=== PATIENT | male | born 1975 | race Caucasian/White ===

== ENCOUNTER 2024-07-22 16:44 | Emergency (ER) | payer BC ==
[2024-07-22] MEDS ORDERED: Sodium Chloride 0.9% 10 ML Syringe FLUSH PRN (16:55)
[2024-07-22 17:00] LABS: BASOPHILS ABSOLUTE AUTO 0.02 K/uL (0.00-0.20); BASOPHILS PERCENT AUTO 0.2 % (0.0-2.0); EOSINOPHILS ABSOLUTE AUTO 0.07 K/uL (0.00-0.50); EOSINOPHILS PERCENT AUTO 0.8 % (0.0-5.0); HEMOGLOBIN 12.9 g/dL (13.1-16.8); IMMATURE GRAN ABSOLUTE AUTO 0.01 10^3/uL (0.00-0.50); IMMATURE GRAN PERCENT AUTO 0.1 % (0.0-5.0); LYMPHOCYTES ABSOLUTE AUTO 0.98 K/uL (0.50-3.50); LYMPHOCYTES PERCENT AUTO 11.1 % (10.0-50.0); MEAN CORPUSCULAR HEMOGLOBIN 29.8 pg (28.2-33.3); MEAN CORPUSCULAR HGB CONC 32.3 g/dL (31.7-36.0); MEAN CORPUSCULAR VOLUME 92.4 fL (84.0-98.0); MONOCYTES ABSOLUTE AUTO 0.91 K/uL (0.00-1.00); MONOCYTES PERCENT AUTO 10.3 % (2.0-14.0); NEUTROPHILS ABSOLUTE AUTO 6.87 K/uL (1.40-7.00); NEUTROPHILS PERCENT AUTO 77.5 % (45.0-80.0); PLATELET COUNT,PLT 238 K/uL (150-350); RED BLOOD CELL COUNT 4.33 M/uL (4.33-5.41); RED CELL DISTRIBUTION WIDTH 12.7 % (11.2-14.1); WHITE BLOOD CELL COUNT,WBC 8.9 K/uL (4.0-10.2)
[2024-07-22 17:20] LABS: ALANINE AMINOTRANSFERASE,ALT 32 U/L (12-78); ALBUMIN 3.8 g/dL (3.4-5.0); ALKALINE PHOSPHATASE 90 IU/L (46-116); ANION GAP 10.1 meq/L (7-15); ASPARTATE AMNIOTRANSFERASE,AST 19 U/L (15-37); BILIRUBIN TOTAL 0.6 mg/dL (0.2-1.0); BLOOD UREA NITROGEN,BUN 8 mg/dL (7-18); CALCIUM 8.7 mg/dL (8.5-10.1); CARBON DIOXIDE,CO2 25.9 mmol/L (21.0-32.0); CHLORIDE,CL 103 mmol/L (98-107); CREATININE 1.14 mg/dL (0.51-1.17); GLUCOSE RANDOM 102 mg/dL (70-99); POTASSIUM,K 3.8 mmol/L (3.5-5.1); PROTEIN TOTAL,TP 7.1 g/dL (6.4-8.2); SODIUM,NA 139 mmol/L (136-145)
[2024-07-22 17:37] LABS: ESTIMATED GFR 79 mL/min (>=60)
[2024-07-22] MEDS: Sodium Chloride 0.9% 1,000 ML IV ONE ×2 (17:49→18:59)
[2024-07-22] MEDS: Ketorolac 15 MG/ML SDV IVPUSH ONE (17:50)
[2024-07-22] MEDS: Benzonatate 100 MG Cap PO ONE (18:01)
[2024-07-22] MEDS: Acetaminophen 500 MG Tab ONE (18:14)
[2024-07-22] MEDS: Acetaminophen 500 MG Tab PO ONE (18:15)
[2024-07-22] MEDS: Take Home: traMADol 50 MG, 4 Tab Pack PO ONE (19:24)
[2024-07-22] MEDS: Take Home: Benzonatate 100 MG, 6 Cap Pack PO ONE (19:25)
[2024-07-22] MEDS: Take Home: Albuterol 6.7 GM Inhaler, 1 Inhaler Pack INH ONE (19:25)
== END 2024-07-22 20:05 | disposition home or self-care (01) ==
LOC: LL.ED 16:44
DX: U07.1 COVID-19 (principal); Z88.5 Allergy status to narcotic agent
CPT/HCPCS: 36415; 71045; 80053; 83605; 83735; 85025; 87428-QW; 87651-QW; 96361; 96374; 99283-25; A9270-GY; J1885; J7030